=== PATIENT | male | born 1935 | race African-American/Black ===

== ENCOUNTER 2018-12-29 09:50 | Emergency (ER) | payer MEDICARE, MEDICAID ==
[~2018-12-29] VITALS: Ht 177.8 cm; Wt 80.0 kg
[2018-12-29] MEDS ORDERED: SODIUM CHLORIDE 0.9% 1,000 ML IV ONE ×2 (10:09→13:57)
[2018-12-29 10:56] LABS: HEMATOCRIT. 31.9 % (42.0-52.0); HEMOGLOBIN. 10.3 g/dL (14.0-18.0); MEAN CORPUSCULAR HEMOGLOBIN 27.7 pg (28.0-32.0); MEAN CORPUSCULAR VOLUME 85.9 fL (80.0-94.0); MEAN PLATELET VOLUME 7.3 fl (7.4-10.4); PLATELET 351 x1000/uL (130-400); RED BLOOD CELL COUNT 3.71 mill/uL (4.7-6.1); RED CELL DISTRIBUTION WIDTH 17.6 % (11.6-14.6)
[2018-12-29 11:00] LABS: CHLORIDE 108 mEq/L (98-107)
[2018-12-29 11:06] LABS: ETHANOL BLOOD < 10 mg/dL; INR 1.1; PROTHROMBIN TIME 11.3 sec (9.1-11.1)
[2018-12-29 11:36] LABS: CLARITY URINE CLEAR (CLEAR); COLOR URINE YELLOW (YELLOW); KETONES URINE TRACE (NEGATIVE); LEUKOCYTE ESTERASE URINE NEGATIVE (NEGATIVE); NITRITE URINE NEGATIVE (NEGATIVE); OCCULT BLOOD URINE NEGATIVE (NEGATIVE); PROTEIN URINE NEGATIVE (NEGATIVE); UROBILINOGEN URINE 0.2 E.U./dL (0.2-1.0)
[2018-12-29 11:52] LABS: *AMPHETAMINES SCREEN URINE NEGATIVE (NEGATIVE)
[2018-12-29 11:53] LABS: *BARBITURATES SCREEN URINE NEGATIVE (NEGATIVE); *BENZODIAZEPINES SCREEN URINE NEGATIVE (NEGATIVE); *COCAINE SCREEN URINE NEGATIVE (NEGATIVE); METHADONE URINE SCREEN NEGATIVE (NEGATIVE); OPIATES URINE SCREEN NEGATIVE (NEGATIVE); PHENCYCLIDINE URINE SCREEN NEGATIVE (NEGATIVE)
[2018-12-29 11:54] LABS: CANNABINOID URINE SCREEN NEGATIVE (NEGATIVE)
[2018-12-29 12:10] LABS: PLATELET ESTIMATE NORMAL
[2018-12-29] MEDS ORDERED: TETANUS, DIPHTHERIA, PERTUSSIS VAC/PF 0.5ML (>7YR OLD) IM ONE (14:00)
[2018-12-30 13:00] VITALS: BP 110/62
== END 2018-12-30 13:28 | disposition home or self-care (01) ==
LOC: EDBD → ER 09:50
DX: S00.83XA Contusion of other part of head, initial encounter (principal); S90.415A Abrasion, left lesser toe(s), initial encounter; E86.0 Dehydration; Y04.0XXA Assault by unarmed brawl or fight, initial encounter; Y93.89 Activity, other specified; Y92.524 Gas station as the place of occurrence of the external cause
CPT/HCPCS: 36415; 70450; 71045; 80053; 80305; 81003; 82962; 84484; 85025; 85610; 87186; 90471; 90715; 93005; 96360; 99284; J7030; G0482

== ENCOUNTER 2018-12-30 18:24 | Inpatient (IN) | payer MEDICARE, MEDICAID ==
[~2018-12-30] VITALS: Ht 182.9 cm; Wt 59.0 kg
[2018-12-30 20:43] LABS: HEMATOCRIT. 33.3 % (42.0-52.0); HEMOGLOBIN. 10.5 g/dL (14.0-18.0); MEAN CORPUSCULAR VOLUME 85.5 fL (80.0-94.0); MEAN PLATELET VOLUME 7.5 fl (7.4-10.4); PLATELET 344 x1000/uL (130-400); RED CELL DISTRIBUTION WIDTH 18.1 % (11.6-14.6)
[2018-12-30 20:44] LABS: CHLORIDE 113 mEq/L (98-107)
[2018-12-30 21:08] LABS: PLATELET ESTIMATE NORMAL
[2018-12-31] MEDS ORDERED: SODIUM CHLORIDE 0.9% 1,000 ML IV ONE (01:00)
[2018-12-31 02:00] LABS: CLARITY URINE CLEAR (CLEAR); COLOR URINE YELLOW (YELLOW); KETONES URINE TRACE (NEGATIVE); LEUKOCYTE ESTERASE URINE NEGATIVE (NEGATIVE); NITRITE URINE NEGATIVE (NEGATIVE); OCCULT BLOOD URINE NEGATIVE (NEGATIVE); PROTEIN URINE NEGATIVE (NEGATIVE); UROBILINOGEN URINE 0.2 E.U./dL (0.2-1.0)
[2018-12-31 03:06] LABS: CREATINE KINASE 532 IU/L (39-308)
[2018-12-31] MEDS ORDERED: MAGNESIUM/ALUMINUM HYDROXIDE/SIMETHICONE 30ML UDC PO PRN (05:45)
[2018-12-31] MEDS ORDERED: GUAIFENESIN 200MG/10ML SUGAR FREE UDC PO PRN (05:45)
[2018-12-31] MEDS ORDERED: IPRATROPIUM/ALBUTEROL 0.5-3(2.5)MG/3ML NEB INH PRN (05:45)
[2018-12-31] MEDS ORDERED: HYDRALAZINE 20MG/ML VIAL IV PRN (05:45)
[2018-12-31] MEDS ORDERED: HYDROMORPHONE HCL/PF 2MG/ML CPJ IV PRN (05:45)
[2018-12-31] MEDS ORDERED: DIPHENHYDRAMINE 50MG/ML VIAL IV PRN (05:45)
[2018-12-31] MEDS ORDERED: DOCUSATE SODIUM 100MG CAPSULE PO PRN (05:45)
[2018-12-31] MEDS ORDERED: NA PHOS,M-B/NA PHOS,DI-BA ENEMA 118ML PR PRN (05:45)
[2018-12-31] MEDS ORDERED: HYDROCODONE/ACETAMINOPHEN 5/325MG TABLET PO PRN (05:45)
[2018-12-31] MEDS ORDERED: ACETAMINOPHEN 325MG TABLET PO PRN (05:45)
[2018-12-31] MEDS ORDERED: CLONIDINE 0.1MG TABLET PO PRN (05:45)
[2018-12-31] MEDS ORDERED: ONDANSETRON HCL 4MG/2ML INJ IV PRN (05:45)
[2018-12-31 16:52] VITALS: BP 123/74
[2018-12-31] MEDS: ENOXAPARIN 40MG/0.4ML SYR SUBCUT SCH (17:29)
[2018-12-31 20:00] VITALS: BP 121/76
[2018-12-31] MEDS: LORAZEPAM 2MG/ML CPJ IV PRN (23:44)
[2019-01-01] VITALS: BP 128/71
[2019-01-01 04:00] VITALS: BP 109/58
[2019-01-01] MEDS: DEXTROSE 5% WATER 1,000 ML IV SCH (05:31)
[2019-01-01] MEDS: SODIUM CHLORIDE 0.9% INJ 3ML FLUSH IVF SCH (06:05)
[2019-01-01 08:00] VITALS: BP 140/72
[2019-01-01] MEDS: ASPIRIN 81MG EC TABLET PO SCH (09:00)
[2019-01-01] MEDS: LORAZEPAM 2MG/ML CPJ IV PRN ×2 (11:30→17:32)
[2019-01-01 12:00] VITALS: BP 130/76
[2019-01-01] MEDS: ENOXAPARIN 40MG/0.4ML SYR SUBCUT SCH (17:32)
[2019-01-01 20:00] VITALS: BP 129/76
[2019-01-02] VITALS: BP 146/78
[2019-01-02 04:00] VITALS: BP 147/92
[2019-01-02] MEDS: LORAZEPAM 2MG/ML CPJ IV PRN (05:05)
[2019-01-02 08:00] VITALS: BP 129/66
[2019-01-02] MEDS: ASPIRIN 81MG EC TABLET PO SCH (09:00)
[2019-01-02 16:00] VITALS: BP 123/60
[2019-01-02] MEDS: ENOXAPARIN 40MG/0.4ML SYR SUBCUT SCH (17:56)
[2019-01-02 20:00] VITALS: BP 124/71
[2019-01-02] MEDS: SODIUM CHLORIDE 0.9% INJ 3ML FLUSH IVF SCH (22:00)
[2019-01-03] VITALS: BP 138/69
[2019-01-03] MEDS: LORAZEPAM 2MG/ML CPJ IV PRN (02:31)
[2019-01-03 04:00] VITALS: BP 124/82
[2019-01-03] MEDS: SODIUM CHLORIDE 0.9% INJ 3ML FLUSH IVF SCH (06:56)
[2019-01-03] MEDS: DEXTROSE 5% WATER 1,000 ML IV SCH (07:01)
[2019-01-03 08:00] VITALS: BP 137/81
[2019-01-03] MEDS: ASPIRIN 81MG EC TABLET PO SCH (08:35)
[2019-01-03 12:00] VITALS: BP 134/76
[2019-01-03 12:09] VITALS: BP 134/76
[2019-01-03 12:39] VITALS: BP 137/87
== END 2019-01-03 14:07 | DRG 72 ==
LOC: EDBD 18:37 → ER 18:37 → 6EST 12-31 01:50 → EDBEDREQTM 12-31 02:05 → EDBEDREQ 12-31 02:05 → ENRESERV 12-31 15:45 → 6EST 01-01 09:46
PROVIDERS: ADMIT Internal Medicine; ATTEND Internal Medicine
DX: G93.40 Encephalopathy, unspecified (principal); R26.81 Unsteadiness on feet; F17.210 Nicotine dependence, cigarettes, uncomplicated; Z59.0 Homelessness; E86.0 Dehydration
CPT/HCPCS: 36415; 71045; 80048; 80305; 82140; 82550; 82962; 84484; 93005; 96361; 96372; 96374; 97110; 97162; 97530; 99285; C1893; G0482; J1650; J2060; J7030; J7050